=== PATIENT | male | born 1975 | race Caucasian/White ===

== ENCOUNTER 2020-08-05 16:19 | Emergency (ER) | payer OTHER, MEDICAID ==
[~2020-08-05] VITALS: Ht 172.7 cm; Wt 104.5 kg
[2020-08-05 16:27] VITALS: BP 132/93
[2020-08-05] MEDS ORDERED: ketorolac tromethamine 15mg/ml inj. IM ONE (17:00)
--- NOTE | 2020-08-05 17:06 | NUR ---
Pt ambulatory to xray
[2020-08-05] MEDS ORDERED: IBUP-1984 PO (17:46)
[2020-08-05] MEDS ORDERED: PENI500T2 PO (17:46)
== END 2020-08-05 17:52 | disposition home or self-care (01) ==
LOC: ER 16:20
DX: K08.89 Other specified disorders of teeth and supporting structures (principal); M25.551 Pain in right hip; R35.0 Frequency of micturition; M19.90 Unspecified osteoarthritis, unspecified site; Z98.890 Other specified postprocedural states; Z79.899 Other long term (current) drug therapy
CPT/HCPCS: 73502; 96372; 99283; J1885

== ENCOUNTER 2021-01-23 07:13 | Inpatient (IN) | payer OTHER, MEDICAID ==
[~2021-01-23] VITALS: Ht 172.7 cm; Wt 102.3 kg
[2021-01-23 07:59] LABS: EOSINOPHILS # (AUTO) 0.1 X10'3 (0-0.9); HEMOGLOBIN 14.6 g/dl (14.0-17.9)
[2021-01-23 08:01] LABS: BASOPHILS % (AUTO) 0.4 % (0-1); HEMATOCRIT 41.7 % (42.0-52.0); LYMPHOCYTES # (AUTO) 1.6 X10'3 (1.1-4.8); LYMPHOCYTES % (AUTO) 24.7 % (21-51); MEAN CORPUSCULAR HEMOGLOBIN 29.1 PG (27.0-31.0); MEAN CORPUSCULAR VOLUME 83.1 FL (78-98); MEAN PLATELET VOLUME 7.2 FL (7.4-10.4); MONOCYTES # (AUTO) 0.7 X10'3 (0-0.9); MONOCYTES % (AUTO) 10.9 % (2-12); PLATELET COUNT 297 X10'3 (140-440); RED BLOOD COUNT 5.02 X10'6 (4.70-6.10); RED CELL DISTRIBUTION WIDTH 14.5 % (11.5-14.5); WHITE BLOOD COUNT 6.4 X10'3 (4.5-11.0)
[2021-01-23 08:21] LABS: ALANINE AMINOTRANSFERASE 11 U/L (12-78); ALBUMIN 3.5 G/DL (3.4-5.0); ALBUMIN/GLOBULIN RATIO 0.9 (1.1-1.5); ALKALINE PHOSPHATASE 62 IU/L (46-116); ANION GAP 11 (8-16); ASPARTATE AMINO TRANSFERASE 17 U/L (10-37); BILIRUBIN,TOTAL 0.4 MG/DL (0.1-1.0); BLOOD UREA NITROGEN 12 MG/DL (7-18); BUN/CREATININE RATIO 19.4 (5.4-32.0); CALCIUM 8.9 MG/DL (8.5-10.1); CHLORIDE 106 MMOL/L (99-107); CREATININE 0.62 MG/DL (0.60-1.10); GLUCOSE 92 MG/DL (70-104); POTASSIUM 3.9 MMOL/L (3.5-5.1); SODIUM 140 MMOL/L (135-145); TOTAL CARBON DIOXIDE 23.2 MMOL/L (24-32); TOTAL PROTEIN 7.6 G/DL (6.4-8.2); eGFR > 90 ML/MIN
[2021-01-23] MEDS ORDERED: hydrALAZINE 20mg/ml inj. IV ONE (11:35)
[2021-01-23] MEDS ORDERED: LISI20TA28 PO (12:48)
[2021-01-23] MEDS ORDERED: CARV6.253 PO (12:49)
--- NOTE | 2021-01-23 12:50 | NUR ---
pt speaking to on phone. no distress noted.
[2021-01-23] MEDS ORDERED: diphenhydrAMINE 25mg capsule PO PRN (13:25)
[2021-01-23] MEDS ORDERED: acetaminophen 650mg rectal suppository RC PRN (13:25)
[2021-01-23] MEDS ORDERED: magnesium hydroxide 30ml (MOM) UD suspension PO PRN (13:25)
[2021-01-23] MEDS ORDERED: ondansetron/PF 4mg/2ml inj IV PRN (13:25)
[2021-01-23] MEDS ORDERED: nitroGLYCERIN 0.4mg SUBLingual tab SL PRN (13:25)
[2021-01-23] MEDS ORDERED: metoprolol tartrate 1mg/ml inj IV PRN (13:25)
[2021-01-23] MEDS ORDERED: magnesium 4gm in 100ml NS 100 ML IV PRN (13:25)
[2021-01-23] MEDS ORDERED: bisacodyl 10mg suppository rectal RC PRN (13:25)
[2021-01-23] MEDS ORDERED: aminophylline 250mg/10ml inj. IV PRN (13:25)
[2021-01-23] MEDS ORDERED: mag hydrox/Alum hydrox/simeth 30ml oral suspension PO PRN (13:25)
[2021-01-23] MEDS ORDERED: magnesium Cl slow-release 64mg tablet PO PRN (13:25)
[2021-01-23] MEDS ORDERED: regadenoson 0.4mg/5ml syringe IV ONE (13:25)
[2021-01-23] MEDS ORDERED: HYDROcodone/acetaminophen 5mg/325mg tablet PO PRN (13:25)
[2021-01-23] MEDS ORDERED: magnesium 2GM in 50ml NS 50 ML IV PRN (13:25)
[2021-01-23] MEDS ORDERED: HYDROcodone/acetaminophen 10/325mg tab PO PRN (13:25)
[2021-01-23] MEDS ORDERED: acetaminophen 325mg tablet PO PRN ×2 (13:25)
[2021-01-23] MEDS ORDERED: morphine 2 MG/ML inj. syringe IV PRN ×2 (13:25)
[2021-01-23] MEDS ORDERED: potassium Cl 40MEQ/1/2NS 520ml 520 ML IV PRN ×2 (13:25)
[2021-01-23] MEDS ORDERED: potassium Cl 20 mEq SR tablet PO PRN ×2 (13:25)
--- NOTE | 2021-01-23 13:46 | NUR ---
Patient resting comfortably. No complaints of chest pain. Eating a snack. Patient updated on plan of care.
[2021-01-23 14:04] LABS: HEMOGLOBIN A1C 5.6 % (4.5-6.2)
[2021-01-23] MEDS: normal saline 1000ml 1,000 ML IV SCH (15:19)
[2021-01-23 16:30] VITALS: BP 120/76
--- NOTE | 2021-01-23 16:30 | NUR ---
Patient in room PCU 3025. I have received report from Shweta and had the opportunity to ask questions and assume patient care. Awaiting patient arrival from ER
[2021-01-23 18:00] VITALS: BP 129/75
--- NOTE | 2021-01-23 18:14 | NUR ---
Problems reprioritized. Patient report given, questions answered & plan of care reviewed with FÉLIX Madrigal.
--- NOTE | 2021-01-23 18:17 | NUR ---
Patient in room PCU 3025. I have received report from lupillo lezama and had the opportunity to ask questions and assume patient care.
[2021-01-23] MEDS: K and/or MAG REPLACEMENT MC SCH (19:08)
[2021-01-23] MEDS: carvedilol 6.25mg tablet PO SCH (19:09)
[2021-01-23] MEDS: heparin, porcine 5000 units/ml vial SQ SCH (19:10)
[2021-01-23 22:00] VITALS: BP 120/77
[2021-01-24] VITALS (9 sets, daily range): BP systolic 121–148; BP diastolic 64–87
[2021-01-24] MEDS: normal saline 1000ml 1,000 ML IV SCH (03:43)
--- NOTE | 2021-01-24 06:04 | NUR ---
Patient in room PCU 3025. I have received report from FÉLIX Mdarigal and had the opportunity to ask questions and assume patient care.
--- NOTE | 2021-01-24 06:08 | NUR ---
Problems reprioritized. Patient report given, questions answered & plan of care reviewed with lupillo lezama.
[2021-01-24] MEDS: heparin, porcine 5000 units/ml vial SQ SCH (07:07)
[2021-01-24] MEDS: carvedilol 6.25mg tablet PO SCH (07:07)
[2021-01-24 07:56] LABS: BASOPHILS % (AUTO) 0.4 % (0-1); EOSINOPHILS # (AUTO) 0.1 X10'3 (0-0.9); EOSINOPHILS % (AUTO) 1.6 % (0-6); HEMATOCRIT 43.5 % (42.0-52.0); HEMOGLOBIN 15.1 g/dl (14.0-17.9); LYMPHOCYTES # (AUTO) 1.7 X10'3 (1.1-4.8); LYMPHOCYTES % (AUTO) 24.9 % (21-51); MEAN CORPUSCULAR HEMOGLOBIN 28.7 PG (27.0-31.0); MEAN CORPUSCULAR HGB CONC 34.7 g/dL (33.0-36.5); MEAN CORPUSCULAR VOLUME 82.7 FL (78-98); MEAN PLATELET VOLUME 7.4 FL (7.4-10.4); MONOCYTES # (AUTO) 0.6 X10'3 (0-0.9); MONOCYTES % (AUTO) 9.2 % (2-12); NEUTROPHILS # (AUTO) 4.5 X10'3 (1.8-7.7); NEUTROPHILS % (AUTO) 63.9 % (42-75); PLATELET COUNT 287 X10'3 (140-440); RED BLOOD COUNT 5.25 X10'6 (4.70-6.10); RED CELL DISTRIBUTION WIDTH 14.2 % (11.5-14.5)
[2021-01-24] MEDS ORDERED: lisinopril 20mg tablet PO SCH (08:00)
[2021-01-24] MEDS: K and/or MAG REPLACEMENT MC SCH (08:00)
[2021-01-24 08:13] LABS: ALANINE AMINOTRANSFERASE 16 U/L (12-78); ALBUMIN 3.2 G/DL (3.4-5.0); ALBUMIN/GLOBULIN RATIO 0.7 (1.1-1.5); ALKALINE PHOSPHATASE 62 IU/L (46-116); ANION GAP 10 (8-16); ASPARTATE AMINO TRANSFERASE 14 U/L (10-37); BILIRUBIN,TOTAL 0.4 MG/DL (0.1-1.0); BLOOD UREA NITROGEN 13 MG/DL (7-18); BUN/CREATININE RATIO 20.6 (5.4-32.0); CALCIUM 8.7 MG/DL (8.5-10.1); CHLORIDE 107 MMOL/L (99-107); CHOL/HDL RATIO 4.2 (0.00-4.99); CHOLESTEROL 169 MG/DL (0-200); CREATININE 0.63 MG/DL (0.60-1.10); GLUCOSE 96 MG/DL (70-104); HDL CHOLESTEROL 40 MG/DL (35-60); LDL CHOLESTEROL 108 MG/DL (50-100); MAGNESIUM 2.1 MG/DL (1.5-2.4); PHOSPHORUS 2.8 MG/DL (2.3-4.5); POTASSIUM 4.5 MMOL/L (3.5-5.1); SODIUM 143 MMOL/L (135-145); TOTAL CARBON DIOXIDE 26.2 MMOL/L (24-32); TOTAL PROTEIN 7.5 G/DL (6.4-8.2); TRIGLYCERIDES 76 MG/DL (20-135); eGFR > 90 ML/MIN
--- NOTE | 2021-01-24 08:39 | NUR ---
PT UPSET OVER VISITING HOURS. WANTING HIS MOM TO VISIT NOW BEFORE HIS FIDEL SCAN. I SPOKE TO CAMP COUNSELOR AND ACCESS DENIED. HE WAS CUSSING TO HIS MOTHER OR DEMANDING THAT SHE JUST WALK ON UP. I TOLD HIM THAT VISITING HOURS STARTED AT 9. HE CONTINUED TO YELL AT ME. I TOLD HIM THAT I SPOKE TO CAMP COUNSELOR AND SHE SAID NO. HE THEN YELLED THAT HE WAS NO GOING TO GO FOR HIS SCAN UNTIL SHE CAME. I INFORMED HIM THAT WAS OK. HE CONTINUED TO YELL. I LEFT THE ROOM. PT CONTINUES TO BE BELLIGERENT. SECURITY CALLED TO ROOM. VISITING POLICY REVIEWED. SECURITY LEFT. PT CONTINUES TO TALK LOUDLY ON PHONE.
--- NOTE | 2021-01-24 08:49 | NUR ---
PT DOWN TO STRESS LAB.
[2021-01-24] MEDS ORDERED: atorvastatin 20mg tablet PO SCH (10:30)
[2021-01-24] MEDS ORDERED: pantoprazole 40mg Tablet.DR PO SCH (10:30)
[2021-01-24] MEDS ORDERED: CARV6.253 PO (11:33)
[2021-01-24] MEDS ORDERED: ATOR20TA66 PO (11:33)
[2021-01-24] MEDS ORDERED: LISI20TA28 PO (11:33)
[2021-01-24] MEDS ORDERED: PANT40TA54 PO (11:33)
[2021-01-24] MEDS ORDERED: ASPI-611 PO (11:33)
--- NOTE | 2021-01-24 12:19 | NUR ---
Patient stable or discharge per MD orders. All discharge instructions and medications reviewed with the patient, who was given the opportunity to ask questions. Patient expressed understanding of discharge instructions. PIV discontinued intact. campus monitor and wires removed and returned to telemetry office. 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
== END 2021-01-24 13:42 | disposition home or self-care (01) | DRG 311 ==
LOC: ER 07:14 → ED HOLD 13:21 → PCU 3S 16:26
PROVIDERS: ADMIT Family Medicine; ATTEND Family Medicine
PROC: 4A02XM4 Measurement of Cardiac Total Activity, External Approach (ICD-10-PCS; principal; 2021-01-24)
PROC: 3E033HZ Introduction of Radioactive Substance into Peripheral Vein, Percutaneous Approach (ICD-10-PCS; 2021-01-24)
DX: I24.9 Acute ischemic heart disease, unspecified (principal); I10 Essential (primary) hypertension; E78.5 Hyperlipidemia, unspecified; I25.10 Atherosclerotic heart disease of native coronary artery without angina pectoris; Z96.642 Presence of left artificial hip joint; M19.90 Unspecified osteoarthritis, unspecified site; F12.90 Cannabis use, unspecified, uncomplicated; I25.2 Old myocardial infarction; Z80.1 Family history of malignant neoplasm of trachea, bronchus and lung; Z82.49 Family history of ischemic heart disease and other diseases of the circulatory system; Z82.5 Family history of asthma and other chronic lower respiratory diseases; Z91.19 Patient's noncompliance with other medical treatment and regimen; Z95.5 Presence of coronary angioplasty implant and graft
CPT/HCPCS: 36415; 71045; 78452; 80053; 80061; 83036; 83735; 83880; 84100; 84484; 85025; 87081; 93005; 93017; 93306; 96365; 99285; A9500; G0378; J1644; J2785; J7030